=== PATIENT | male | born 1955 | race Caucasian/White ===

== ENCOUNTER 2022-12-21 09:51 | Outpatient (CLI) | payer MEDICARE, BC | END 2022-12-21 23:59 | disposition home or self-care (01) | LOC: CARD DIAG 09:51 | PROVIDERS: ATTEND Family Medicine | DX: I08.3 Combined rheumatic disorders of mitral, aortic and tricuspid valves (principal); I50.9 Heart failure, unspecified | CPT/HCPCS: 93306 ==